=== PATIENT | female | born 1990 | race Caucasian/White ===

== ENCOUNTER 2018-06-18 19:54 | Emergency (ER) | payer BC ==
--- NOTE | 2018-06-18 20:32 | EDM.PDOC ---
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 The patient notes that she is 12-1/2 weeks , today she states she has not been feeling very well, she's had some loss of appetite and feeling just more fatigued than usual. The patient noticed that she started having some mild cramping roughly 2 hours ago with some spotting. She then noticed that she had passed a quarter size clot at about the same time. She notes she is a with one miscarriage roughly 2 years ago. Regarding the other 2 births one was a preemie at 29 weeks and the other one was born at 35 weeks. The patient notes she is Rh-. The patient states she does have some cramping that kind of comes and goes. She is a patient of Dr. Monte'celina, and she has had her initial OB appointment done with ultrasound showing there is only 1 fetus present. She states she has a another follow-up appointment with Dr. Monte on Monday. - Related Data Allergies Allergy/AdvReac Type Severity Reaction Status Date / Time clindamycin Allergy Anaphylactic Verified 06/18/18 20:03 Shock penicillamine Allergy Anaphylactic Verified 06/18/18 20:03 Shock Home Meds: Home Meds Ondansetron [Zofran ODT] 4 mg BUCCAL Q6HR PRN 06/18/18 [History] Past Medical History - Past Health History Medical/Surgical History: Denies Medical/Surgical History Social & Family History - Tobacco Use Smoking Status *Q: Current Every Day Smoker Years of Tobacco use: 10 Packs/Tins Daily: 1 - Caffeine Use Caffeine Use: Reports: Coffee, Soda - Recreational Drug Use Recreational Drug Use: No ED ROS GENERAL - Review of Systems Review Of Systems: See Below Constitutional: Reports: No Symptoms HEENT: Reports: No Symptoms Respiratory: Reports: No Symptoms Cardiovascular: Reports: No Symptoms Endocrine: Reports: No Symptoms GI/Abdominal: Reports: Abdominal Pain (cramping) : Reports: No Symptoms, Other (vaginal bleeding with 1 quarter sized clot) Musculoskeletal: Reports: No Symptoms Skin: Reports: No Symptoms Neurological: Reports: No Symptoms Psychiatric: Reports: No Symptoms Hematologic/Lymphatic: Reports: No Symptoms Immunologic: Reports: No Symptoms ED EXAM - Physical Exam Exam: See Below Exam Limited By: No Limitations General Appearance: Alert, WD/WN, No Apparent Distress Respiratory/Chest: No Respiratory Distress, Lungs Clear, Normal Breath Sounds, No Accessory Muscle Use, Chest Non-Tender Cardiovascular: Normal Peripheral Pulses, Regular Rate, Rhythm, No Murmur GI/Abdominal Exam: Normal Bowel Sounds, Soft, Non-Tender, No Distention, No Mass , Other (The patient is obese, however she does have a gravid appearing abdomen. ) (Female) Exam: Normal External Exam, Normal Speculum Exam, Vaginal Bleeding, Other (Pt is obese, and I could not get a great look at the cervical Os, due to tissue prolapse, there was small amount of blood in vaginal vault, no tissue or clots noted.) Movement: Not Appreciated Extremities: Normal Inspection, Normal Capillary Refill Neurological: Alert, Oriented, No Motor/Sensory Deficits Psychiatric: Normal Affect, Normal Mood Skin Exam: Warm, Dry, Intact, Normal Color, No Rash Course - Vital Signs Last Recorded V/S: Last Vital Signs Temp 97.4 F 06/18/18 22:48 Pulse 89 06/18/18 22:48 Resp 18 06/18/18 22:48 BP 111/85 06/18/18 22:48 Pulse Ox 97 06/18/18 22:48 - Orders/Labs/Meds Orders: Active Orders 24 hr Category Date Time Status PATIENT RETYPE [BBK] Routine Lab 06/18/18 22:24 Ordered Labs: Laboratory Tests 06/18/18 06/18/18 06/18/18 Range/Units 20:30 20:30 20:30 WBC 9.67 (3.98-10.04) K/mm3 RBC 4.44 (3.98-5.22) M/mm3 Hgb 13.8 (11.2-15.7) gm/L Hct 39.5 (34.1-44.9) % MCV 89.0 (79.4-94.8) fl MCH 31.1 (25.6-32.2) pg MCHC 34.9 (32.2-35.5) g/dl RDW Std Deviation 40.3 (36.4-46.3) fL Plt Count 175 L (182-369) K/mm3 MPV 12.2 (9.4-12.3) fl Neut % (Auto) 52.8 (34.0-71.1) % Lymph % (Auto) 38.4 (19.3-51.7) % Nicholas % (Auto) 7.4 (4.7-12.5) % Eos % (Auto) 0.8 (0.7-5.8) Baso % (Auto) 0.2 (0.1-1.2) % Neut # (Auto) 5.10 (1.56-6.13) K/mm3 Lymph # (Auto) 3.71 (1.18-3.74) K/mm3 Nicholas # (Auto) 0.72 H (0.24-0.36) K/mm3 Eos # (Auto) 0.08 (0.04-0.36) K/mm3 Baso # (Auto) 0.02 (0.01-0.08) K/mm3 HCG, Quant 45740.0 mIU/mL Blood Type O NEGATIVE Gel Antibody Screen Negative - Re-Assessments/Exams Free Text/Narrative Re-Assessment/Exam: 06/18/18 20:32 Patient presents to the ED for evaluation of bleeding with . I have ordered an ultrasound, CBC, type and screen, and a quantitative hCG to be obtained. 06/18/18 22:40 US is done, official radiology read is pending, however on the studies there is a heart rate of 148 noted. I did order Rhogham to be given to the patient and have given her general recommendations for further management. Departure - Departure Time of Disposition: 22:55 Disposition: Home, Self-Care 01 Condition: Fair Clinical Impression: Threatened - Discharge Information *PRESCRIPTION DRUG MONITORING PROGRAM REVIEWED*: No *COPY OF PRESCRIPTION DRUG MONITORING REPORT IN PATIENT NAMITA: No Instructions: Threatened Miscarriage, [id number] Referrals: Tanya Monte MD [Primary Care Provider] - Forms: ED Department Discharge Additional Instructions: You have been evaluated in the ED today for your bleeding with . Your ultrasound showed a viable , with a heart rate of 140bpm. You were given a dose of RhoGAM in the ED today as your blood type is O negative. Over the next few days please take it easy, and get lots of rest and drink plenty of fluids. Please follow up with your OB on Monday at your next appointment. Please return to the ED if your symptoms should change or worsen. - My Orders Last 24 Hours: My Active Orders 06/18/18 22:24 PATIENT RETYPE [BBK] Routine - Assessment/Plan Last 24 Hours: My Active Orders 06/18/18 22:24 PATIENT RETYPE [BBK] Routine
--- NOTE | 2018-06-20 12:10 | US ---
First trimester obstetrical ultrasound: Multiple real-time images were obtained transabdominally. Dates: Current ultrasound: [facility] 12/22/18, gestational age 13 weeks 2 days Single intrauterine fetus is seen. Amniotic fluid volume is normal. No placental abruption or subchorionic hemorrhage is seen. Measurements: BPD: 2.30 cm - 13 weeks 6 days Head circumference: 8.24 cm - 13 weeks 4 days Abdominal circumference: 6.35 cm - 13 weeks 0 days Femur length: 0.90 cm - 12 weeks 5 days Estimated weight: 66 g (0 lbs. 2 oz.), estimated weight at the 43rd percentile Heart rate: 148 bpm Maternal adnexa are visualized and appear within normal limits. Impression: 1. Single intrauterine fetus. Dates as noted above. 2. No etiology is seen for the patient's bleeding. Diagnostic code #1 I agree with preliminary report from mckenna, finalized on 06/18/18, 11:50 PM Central Time Note: This exam has only now been submitted for final interpretation. [facility]
== END 2018-06-18 23:10 | disposition home or self-care (01) ==
LOC: JD.ED 19:54
DX: O20.0 Threatened abortion (principal); F17.210 Nicotine dependence, cigarettes, uncomplicated; Z88.1 Allergy status to other antibiotic agents; Z88.0 Allergy status to penicillin; Z3A.12 12 weeks gestation of pregnancy
CPT/HCPCS: 36415; 76817; 84702; 85025; 86850; 86900; 86901; 96372; 99284; J2790; 36430; 99282